=== PATIENT | female | born 1995 | race Caucasian/White ===

== ENCOUNTER 2020-11-25 02:57 | Emergency (ER) | payer MEDICAID ==
[~2020-11-25] VITALS: Ht 170.2 cm; Wt 79.0 kg
[2020-11-25] MEDS ORDERED: IBUPROFEN 600MG TABLET PO ONE (05:00)
[2020-11-25] MEDS ORDERED: IBUP-2029 MT (05:07)
[2020-11-25 05:15] VITALS: BP 121/81
== END 2020-11-25 05:17 | disposition home or self-care (01) ==
LOC: ER 03:33
DX: M25.511 Pain in right shoulder (principal); R07.89 Other chest pain; V43.62XA Car passenger injured in collision with other type car in traffic accident, initial encounter; Y93.89 Activity, other specified; Y92.488 Other paved roadways as the place of occurrence of the external cause
CPT/HCPCS: 71045; 73030; 73590; 99284